=== PATIENT | female | born 1950 | race Caucasian/White ===

== ENCOUNTER → 2016-02-28 | Outpatient (CLI) | payer OTHER, BC | LOC: RAD 01:04 | DX: Z12.31 Encounter for screening mammogram for malignant neoplasm of breast (principal) ==

== ENCOUNTER → 2017-03-15 | Outpatient (CLI) | payer OTHER | LOC: RAD 01:15 | DX: Z12.31 Encounter for screening mammogram for malignant neoplasm of breast (principal) ==

== ENCOUNTER → 2017-03-21 | Outpatient (CLI) | payer OTHER | LOC: ULTRA 09:02 | DX: N63.10 Unspecified lump in the right breast, unspecified quadrant (principal); N63.20 Unspecified lump in the left breast, unspecified quadrant; Q83.9 Congenital malformation of breast, unspecified ==

== ENCOUNTER → 2018-05-17 | Outpatient (CLI) | payer OTHER | LOC: RAD 09:11 | DX: Z12.31 Encounter for screening mammogram for malignant neoplasm of breast (principal) ==

== ENCOUNTER → 2019-07-07 | Outpatient (CLI) | payer OTHER | LOC: BC 08:28 | DX: Z12.31 Encounter for screening mammogram for malignant neoplasm of breast (principal) ==